=== PATIENT | male | born 1990 | race Caucasian/White ===

== ENCOUNTER 2022-01-30 01:13 | Emergency (ER) | payer SELFPAY ==
[~2022-01-30] VITALS: Ht 190.5 cm; Wt 113.4 kg
[2022-01-30] MEDS ORDERED: PROTONIX40 MG PO (02:49)
[2022-01-30] MEDS ORDERED: ATIVAN2 MG PO (02:49)
[2022-01-30] MEDS ORDERED: ONDANSETRON ODT8 MG PO (02:49)
== END 2022-01-30 03:49 | disposition home or self-care (01) ==
LOC: ED 01:13
DX: K29.20 Alcoholic gastritis without bleeding (principal); F10.239 Alcohol dependence with withdrawal, unspecified; Y90.0 Blood alcohol level of less than 20 mg/100 ml
CPT/HCPCS: 36415; 80053; 81001; 83690; 85025; 85610; 85730; 96365; 96375; 99285-25; A9270; C9113; G0480; J2060; J2405; J3411; J7030